=== PATIENT | female | born 2000 | race Caucasian/White ===

== ENCOUNTER → 2018-03-29 | Outpatient (REF) | payer BC ==
[2018-03-29 22:13] LABS: APPEARANCE, URINE CLEAR (CLEAR); BACTERIA, URINE AUTO 1+ (NEGATIVE); BILIRUBIN, URINE AUTO NEGATIVE (NEGATIVE); BLOOD, URINE BLOOD 2+ (NEGATIVE); COLOR, URINE YELLOW (YELLOW); GLUCOSE, URINE (UA) AUTO NEGATIVE (NEGATIVE); KETONE, URINE AUTO NEGATIVE (NEGATIVE); LEUKOCYTE ESTERASE, URINE AUTO 1+ (NEGATIVE); NITRITE, URINE AUTO POSITIVE (NEGATIVE); PROTEIN, URINE AUTO NEGATIVE (NEGATIVE); RBC, URINE AUTO 1 /HPF (0-3); SPECIFIC GRAVITY URINE AUTO 1.002 (1.002-1.035); SQUAMOUS EPITHELIAL CELL UR AU 1 /HPF (0-6); WBC, URINE AUTO 11 /HPF (0-3)
== END ==
LOC: M LAB REF 21:24
DX: N39.0 Urinary tract infection, site not specified (principal)
CPT/HCPCS: 81001

== ENCOUNTER 2019-09-09 11:58 | Emergency (ER) | payer BC ==
[~2019-09-09] VITALS: Ht 162.6 cm; Wt 66.0 kg
[2019-09-09 14:32] LABS: BASO # 0.1 10^3/uL (0.0-0.2); BASO % 0.5 % (0.0-1.0); EOS # 0.1 10^3/uL (0.0-0.5); EOS % 0.7 % (0.0-3.0); HEMATOCRIT 41.7 % (36.0-47.0); HEMOGLOBIN 13.8 g/dl (12.0-15.5); LYMPH # 2.8 10^3/uL (1.5-5.0); LYMPH % 24.9 % (24.0-44.0); MEAN CORPUSCULAR HEMOGLOBIN 30.7 pg (27.0-33.0); MEAN CORPUSCULAR HGB CONC 33.1 g/dl (32.0-36.5); MEAN CORPUSCULAR VOLUME 92.7 fl (80.0-96.0); MONO # 1.1 10^3/uL (0.0-0.8); MONO % 9.8 % (0.0-5.0); NEUTROPHILS # 7.1 10^3/uL (1.5-8.5); NEUTROPHILS % 63.6 % (36.0-66.0); PLATELET COUNT, AUTOMATED 367 10^3/uL (150-450); WHITE BLOOD COUNT 11.1 10^3/uL (4.0-10.0)
[2019-09-09 14:59] LABS: ALBUMIN 4.2 GM/DL (3.2-5.2); BILIRUBIN,DIRECT 0.1 MG/DL (0.0-0.2); BILIRUBIN,TOTAL 0.4 MG/DL (0.2-1.0)
[2019-09-09] MEDS ORDERED: NS 1,000 ML IV SCH (15:15)
[2019-09-09] MEDS ORDERED: PANTOPRAZOLE 40MG INJ (PROTONIX) (C9113) IV ONE (15:15)
[2019-09-09] MEDS: GASTROGRAFIN SOLUTION 30ML PO SCH ×2 (15:51→16:51)
[2019-09-09] MEDS ORDERED: ISOVUE-370 76% 100ML VIAL (Q9967) As Ordered ONE (17:00)
--- NOTE | 2019-09-09 17:37 | REPVR ---
PROCEDURE INFORMATION: Exam: CT Abdomen And Pelvis With Contrast Exam date and time: 09/09/2019 3:01 PM Age: 18 years old Clinical indication: Abdominal pain; Additional info: Gi bleed TECHNIQUE: Imaging protocol: Computed tomography of the abdomen and pelvis with intravenous contrast. Radiation optimization: All CT scans at this facility use at least one of these dose optimization techniques: automated exposure control; mA and/or kV adjustment per patient size (includes targeted exams where dose is matched to clinical indication); or iterative reconstruction. Contrast material: ISOVUE 370; Contrast volume: 100 ml; Contrast route: IV; Other contrast: Route: Oral, Material: GASTROGRAPHIN ; COMPARISON: No relevant prior studies available. FINDINGS: Lungs: The visualized lung bases are essentially clear. Liver: There are 5 mm hypodense lesions at the hepatic dome (image 201:17), and more inferiorly in the right hepatic lobe (image 201:31), too small to characterize. The liver appears otherwise unremarkable. Gallbladder and bile ducts: No gallstones are evident, but ultrasound would be more sensitive. No gross biliary ductal dilatation. Pancreas: Normal. No ductal dilation. Spleen: A small splenule is noted. The spleen itself appears unremarkable. Adrenals: Normal. No mass. Kidneys and ureters: The right kidney appears unremarkable. The left kidney contains a 9 mm cyst, which does not require follow-up, along with a 5 mm hypodense lesion which is too small to characterize, but is homogeneous and does not require follow-up. It appears otherwise unremarkable. Stomach and bowel: The small bowel is not obstructed. The large bowel is grossly unremarkable in appearance. Appendix: The appendix appears normal. Intraperitoneal space: There is no free air. Small free fluid in the pelvis is not clearly outside physiologic limits. Vasculature: Unremarkable. No abdominal aortic aneurysm. Lymph nodes: Unremarkable. No enlarged lymph nodes. Bladder: Grossly unremarkable. Reproductive: No gross adnexal abnormality is apparent, but ultrasound would be more appropriate in this regard. Bones/joints: Unremarkable. No acute fracture. Soft tissues: Unremarkable. IMPRESSION: 1. No acute abnormality identified. 2. 5 mm hypodensity panic lesions, too small to characterize. For low or average risk patients, no further follow-up. For high risk patients, follow-up CT or MRI in 6 months. May need more frequent follow-up in some situations, such as a cirrhotic patient who is a liver transplant candidate. Electronically signed by: Julius Ferrara On 09/09/2019 17:36:59 PM
[2019-09-09] MEDS ORDERED: PROC1AER16 PR (17:53)
[2019-09-09 18:01] VITALS: BP 119/68
--- NOTE | 2019-09-11 13:47 | ED PDOC ---
Post-Departure Follow-Up certified letter sent to pt re formal read of ct abd/p. see report. needs urgent follow up. please obtain name of pcp and fx. if no pcp refer to [facility] , provide number and fax. Ryann Wallace MD Sep 11, 2019 13:47
== END 2019-09-09 18:20 | disposition home or self-care (01) ==
LOC: M ED 11:58
DX: K51.911 Ulcerative colitis, unspecified with rectal bleeding (principal); K76.89 Other specified diseases of liver; F17.210 Nicotine dependence, cigarettes, uncomplicated
CPT/HCPCS: 74177; 80047; 80076; 81001; 83690; 84702; 85025; 87086; 96374; 99284; C9113; Q9963; Q9967

== ENCOUNTER 2019-11-27 16:26 | Emergency (ER) | payer BC ==
[~2019-11-27] VITALS: Ht 162.6 cm; Wt 68.9 kg
[~2019-11-27 16:26] MED LIST: PROC1AER16 PR
[2019-11-27 16:55] LABS: BASO # 0.1 10^3/uL (0.0-0.2); BASO % 0.4 % (0.0-1.0); EOS # 0.1 10^3/uL (0.0-0.5); EOS % 0.4 % (0.0-3.0); HEMATOCRIT 45.4 % (36.0-47.0); HEMOGLOBIN 15.2 g/dl (12.0-15.5); LYMPH # 2.7 10^3/uL (1.5-5.0); LYMPH % 21.8 % (24.0-44.0); MEAN CORPUSCULAR HEMOGLOBIN 31.1 pg (27.0-33.0); MEAN CORPUSCULAR HGB CONC 33.5 g/dl (32.0-36.5); MEAN CORPUSCULAR VOLUME 92.8 fl (80.0-96.0); MONO # 1.3 10^3/uL (0.0-0.8); MONO % 10.2 % (0.0-5.0); NEUTROPHILS # 8.2 10^3/uL (1.5-8.5); NEUTROPHILS % 66.9 % (36.0-66.0); PLATELET COUNT, AUTOMATED 388 10^3/uL (150-450); RED BLOOD COUNT 4.89 10^6/uL (4.00-5.40); WHITE BLOOD COUNT 12.3 10^3/uL (4.0-10.0)
[2019-11-27] MEDS ORDERED: NS 1,000 ML IV ONE (17:00)
[2019-11-27] MEDS ORDERED: ISOVUE-370 76% 100ML VIAL (Q9967) As Ordered ONE (17:14)
[2019-11-27] MEDS ORDERED: ONDANSETRON 4MG/2ML VIAL (J2405) IV ONE (17:15)
[2019-11-27] MEDS ORDERED: KETOROLAC 30 MG/ML 1ML VIAL (J1885 PER 15MG) IV ONE (17:15)
[2019-11-27 17:26] LABS: ALBUMIN 4.2 GM/DL (3.2-5.2); ALT/SGPT 30 U/L (12-78); BILIRUBIN,DIRECT 0.1 MG/DL (0.0-0.2); BILIRUBIN,TOTAL 0.5 MG/DL (0.2-1.0); BLOOD UREA NITROGEN 10 MG/DL (7-18); CALCIUM LEVEL 9.7 MG/DL (8.5-10.1); CARBON DIOXIDE LEVEL 29 MEQ/L (21-32); CHLORIDE LEVEL 101 MEQ/L (98-107); CREATININE FOR GFR 0.79 MG/DL (0.55-1.30); GLOMERULAR FILTRATION RATE > 60.0 (>60); GLUCOSE, FASTING 92 MG/DL (70-100); LIPASE 117 U/L (73-393); POTASSIUM SERUM 4.1 MEQ/L (3.5-5.1); SODIUM LEVEL 137 MEQ/L (136-145); TOTAL PROTEIN 8.3 GM/DL (6.4-8.2)
--- NOTE | 2019-11-27 18:13 | REPVR ---
PROCEDURE INFORMATION: Exam: CT Abdomen And Pelvis With Contrast Exam date and time: 11/27/2019 5:54 PM Age: 19 years old Clinical indication: Abdominal pain; Prior surgery; Additional info: Rlq pain, n/v TECHNIQUE: Imaging protocol: Computed tomography of the abdomen and pelvis with intravenous contrast. Radiation optimization: All CT scans at this facility use at least one of these dose optimization techniques: automated exposure control; mA and/or kV adjustment per patient size (includes targeted exams where dose is matched to clinical indication); or iterative reconstruction. Contrast material: ISO 370; Contrast volume: 100 ml; Contrast route: IV; COMPARISON: CT ABD/PEL W/IV ORAL CONTRAS 09/09/2019 5:01 PM FINDINGS: Liver: There is a diffuse decrease in hepatic parenchymal density, consistent with steatosis. 8 mm indeterminate hypodensity right lobe of the liver may represent a partially opacified hemangioma or cyst. Small cyst in the posterior patent dome. Findings are stable in comparison to the prior study. Ultrasound correlation could be obtained if clinically desired. Gallbladder and bile ducts: The gallbladder is incompletely distended. This is most likely related to incomplete fasting. Clinical correlation to exclude gallbladder pathology suggested. Pancreas: Normal. No ductal dilation. Spleen: Normal. No splenomegaly. Adrenals: Normal. No mass. Kidneys and ureters: Small left renal cysts measure up to 11 mm, stable. No follow-up suggested. Stomach and bowel: Unremarkable. No obstruction. No mucosal thickening. Appendix: The appendix is within normal limits. There is no appendiceal enlargement, periappendiceal inflammatory changes or abscess. Intraperitoneal space: Unremarkable. No free air. No significant fluid collection. Vasculature: Unremarkable. No abdominal aortic aneurysm. Lymph nodes: Unremarkable. No enlarged lymph nodes. Bladder: Unremarkable as visualized. Reproductive: 1.4 cm cyst in the right ovary likely functional. Bones/joints: Unremarkable. No acute fracture. Soft tissues: Possible mass or cyst in the left breast measuring 2 x 1.3 cm, finding which should be correlated with clinical examination/ultrasound. IMPRESSION: 1. Possible mass or cyst in the left breast measuring 2 x 1.3 cm, finding which should be correlated with clinical examination/ultrasound. 2. There is a diffuse decrease in hepatic parenchymal density, consistent with steatosis. 3. 8 mm indeterminate hypodensity right lobe of the liver may represent a partially opacified hemangioma or cyst. Small cyst in the posterior patent dome. Findings are stable in comparison to the prior study. Ultrasound correlation could be obtained if clinically desired. 4. The gallbladder is incompletely distended. This is most likely related to incomplete fasting. Clinical correlation to exclude gallbladder pathology suggested. 5. Small left renal cysts measure up to 11 mm, stable. No follow-up suggested. 6. The appendix is within normal limits. There is no appendiceal enlargement, periappendiceal inflammatory changes or abscess. Electronically signed by: Clifton Coy On 11/27/2019 18:12:51 PM
--- NOTE | 2019-11-27 18:40 | REPVR ---
PROCEDURE INFORMATION: Exam: US Pelvis Complete, Transabdominal Exam date and time: 11/27/2019 6:24 PM Age: 19 years old Clinical indication: Pelvic pain; Additional info: R pelvic pain TECHNIQUE: Imaging protocol: Real-time transabdominal pelvic ultrasound with image documentation. Complete exam. COMPARISON: CT ABD/PEL W/IV CONTRAST ONLY 11/27/2019 5:47 PM FINDINGS: Uterus/cervix: Uterus measures 7.4 x 2.6 x 4.2 cm. Endometrial echo complex measures 3.5 mm. Right adnexa: Simple cyst right ovary measures 1.9 x 2 x 1.3 cm consistent with a dominant follicle. Normal blood flow. Left adnexa: Ovary is normal. No mass. Normal blood flow. Free fluid: None. Bladder: Normal. IMPRESSION: Unremarkable examination. Electronically signed by: Clifton Coy On 11/27/2019 18:40:20 PM
[2019-11-27 18:52] VITALS: BP 112/78
--- NOTE | 2019-11-29 06:34 | ED PDOC ---
Post-Departure Follow-Up dr box faxed formal report of ct abd/p for fu Ryann Wallace MD Nov 29, 2019 06:34
== END 2019-11-27 19:00 | disposition home or self-care (01) ==
LOC: M ED 16:26
DX: N83.01 Follicular cyst of right ovary (principal); R92.8 Other abnormal and inconclusive findings on diagnostic imaging of breast; K76.89 Other specified diseases of liver; N28.1 Cyst of kidney, acquired; R11.2 Nausea with vomiting, unspecified
CPT/HCPCS: 74177; 76856; 80048; 80076; 83690; 84702; 85025; 96361; 96374; 96375; 99284; J1885; J2405; Q9967

== ENCOUNTER 2020-01-30 13:51 | Emergency (ER) | payer BC, OTHER ==
[~2020-01-30] VITALS: Ht 162.6 cm; Wt 70.3 kg
[2020-01-30 14:47] LABS: BASO # 0.1 10^3/uL (0.0-0.2); BASO % 0.4 % (0.0-1.0); EOS # 0.1 10^3/uL (0.0-0.5); HEMOGLOBIN 14.4 g/dl (12.0-15.5); LYMPH # 2.7 10^3/uL (1.5-5.0); LYMPH % 22.9 % (24.0-44.0); MEAN CORPUSCULAR HEMOGLOBIN 30.6 pg (27.0-33.0); MEAN CORPUSCULAR HGB CONC 33.5 g/dl (32.0-36.5); MEAN CORPUSCULAR VOLUME 91.5 fl (80.0-96.0); MONO # 1.2 10^3/uL (0.0-0.8); MONO % 10.1 % (0.0-5.0); NEUTROPHILS # 7.7 10^3/uL (1.5-8.5); NEUTROPHILS % 65.3 % (36.0-66.0); PLATELET COUNT, AUTOMATED 376 10^3/uL (150-450); WHITE BLOOD COUNT 11.7 10^3/uL (4.0-10.0)
[2020-01-30 15:35] LABS: HCG, SERUM QUALITATIVE POSITIVE (NEGATIVE)
[2020-01-30 15:48] LABS: ALBUMIN 4.1 GM/DL (3.2-5.2); ALT/SGPT 24 U/L (12-78); BILIRUBIN,DIRECT 0.2 MG/DL (0.0-0.2); BILIRUBIN,TOTAL 0.5 MG/DL (0.2-1.0); FREE T4 1.02 NG/DL (0.76-1.46); LIPASE 150 U/L (73-393); TOTAL PROTEIN 8.3 GM/DL (6.4-8.2)
[2020-01-30 16:09] LABS: HCG, SERUM QUANTITATIVE 10 MIU/ML
[2020-01-30 16:27] VITALS: BP 137/87
== END 2020-01-30 16:30 | disposition home or self-care (01) ==
LOC: M ED 13:51
DX: Z32.01 Encounter for pregnancy test, result positive (principal)

== ENCOUNTER 2020-02-07 12:30 | Emergency (ER) | payer BC, OTHER ==
[~2020-02-07] VITALS: Ht 162.6 cm; Wt 68.7 kg
[2020-02-07] MEDS ORDERED: PRENTAB7 PO (12:41)
[2020-02-07 13:31] LABS: BASO % 0.3 % (0.0-1.0); EOS % 0.3 % (0.0-3.0); HEMATOCRIT 42.7 % (36.0-47.0); HEMOGLOBIN 14.2 g/dl (12.0-15.5); LYMPH # 2.1 10^3/uL (1.5-5.0); MEAN CORPUSCULAR HEMOGLOBIN 30.5 pg (27.0-33.0); MEAN CORPUSCULAR HGB CONC 33.3 g/dl (32.0-36.5); MEAN CORPUSCULAR VOLUME 91.8 fl (80.0-96.0); MONO # 0.9 10^3/uL (0.0-0.8); MONO % 8.3 % (0.0-5.0); NEUTROPHILS # 7.6 10^3/uL (1.5-8.5); PLATELET COUNT, AUTOMATED 387 10^3/uL (150-450); RED BLOOD COUNT 4.65 10^6/uL (4.00-5.40); WHITE BLOOD COUNT 10.7 10^3/uL (4.0-10.0)
[2020-02-07 13:59] LABS: BLOOD UREA NITROGEN 7 MG/DL (7-18); CALCIUM LEVEL 9.7 MG/DL (8.5-10.1); CARBON DIOXIDE LEVEL 28 MEQ/L (21-32); CHLORIDE LEVEL 106 MEQ/L (98-107); CREATININE FOR GFR 0.74 MG/DL (0.55-1.30); GLOMERULAR FILTRATION RATE > 60.0 (>60); GLUCOSE, FASTING 88 MG/DL (70-100); HCG, SERUM QUANTITATIVE 4 MIU/ML; POTASSIUM SERUM 3.9 MEQ/L (3.5-5.1); SODIUM LEVEL 140 MEQ/L (136-145)
[2020-02-07 15:00] VITALS: BP 133/81
--- NOTE | 2020-02-07 17:34 | REP ---
REASON: Pelvic pain with vaginal bleeding. COMPARISON: 11/27/2019 Transvesical and transvaginal imaging was obtained. The uterus is unchanged in size and shape measuring approximately 7.3 x 3.5 x 4.3 cm. The parenchymal echo pattern is within normal limits. The endometrial echocomplex is within normal limits measuring 8 mm in thickness. There is no free fluid in the cul-de-sac. Both ovaries are within normal limits, the right measures 1.7 x 1.3 x 1.5 cm and the left measures 1.5 x 1.6 x 1.3 cm. The right ovarian RI is 0.5 and the left is 0.47. IMPRESSION: Pelvic ultrasonography is within normal limits. Electronically Signed by Abraham Lopez DO 02/17/2020 07:43 A
== END 2020-02-07 14:58 | disposition home or self-care (01) ==
LOC: M ED 12:30
DX: O20.0 Threatened abortion (principal); Z3A.01 Less than 8 weeks gestation of pregnancy; F33.9 Major depressive disorder, recurrent, unspecified; O99.341 Other mental disorders complicating pregnancy, first trimester; F41.9 Anxiety disorder, unspecified; Z87.891 Personal history of nicotine dependence

== ENCOUNTER → 2020-03-08 | Emergency (ER) | payer OTHER ==
[~2020-03-08] MED LIST changes: +PRENTAB7 PO
== END | disposition left against medical advice (07) ==
LOC: M ED 21:06
DX: Z53.21 Procedure and treatment not carried out due to patient leaving prior to being seen by health care provider (principal)

== ENCOUNTER 2020-07-24 02:00 | Outpatient (CLI) | payer BC, OTHER ==
[2020-07-24] MEDS ORDERED: FLUCONAZOLE 50MG TABLET PO ONE (04:45)
--- NOTE | 2020-07-24 04:46 | IPNPDOC ---
Obstetrical Progress Note Date of Service Jul 24, 2020 Subjective 19yo at 23+1 presents for decreased FM and cramps. she denied vb, lof, contractions. she denied n/v/d, cp, sob, freeman, visual changes, f/c, vaginal dc, urinary sx. Assessment Heart Rate (FHR): 140 Tocometer Contractions: No Sterile Vaginal Examination Dilation: None Station: -3 Cervical Consistency: Firm Cervical Position: Posterior Postion/Presentation: Cephalic presentation Assessment and Plan Additional Comments 19yo at 23+1 presents for cramps and decreased FM. VS normal, doptones 140bpm, no contractions on toco. SVE c/t/h, thick white vaginal DC on exam. MESSI/WP positive for budding yeast. UA/UCx pending, no urinary sx. TAUS with zakia quate fluid, +FM, +FHR. Labor unlikley at this time. - fluconazole given for yeast infection - educated on hydration and kick counts - provided with routine OB return precautions - otherwise to follow up at next PREM WITT DO Jul 24, 2020 04:46
[2020-07-24 05:19] LABS: AMORPHOUS SEDIMENT SMALL (NEGATIVE); APPEARANCE, URINE HAZY (CLEAR); BACTERIA, URINE AUTO 2+ (NEGATIVE); BILIRUBIN, URINE AUTO NEGATIVE (NEGATIVE); BLOOD, URINE BLOOD NEGATIVE (NEGATIVE); COLOR, URINE YELLOW (YELLOW); GLUCOSE, URINE (UA) AUTO NEGATIVE (NEGATIVE); KETONE, URINE AUTO NEGATIVE (NEGATIVE); LEUKOCYTE ESTERASE, URINE AUTO 1+ (NEGATIVE); NITRITE, URINE AUTO NEGATIVE (NEGATIVE); PROTEIN, URINE AUTO NEGATIVE (NEGATIVE); RBC, URINE AUTO 1 /HPF (0-3); SPECIFIC GRAVITY URINE AUTO 1.002 (1.002-1.035); SQUAMOUS EPITHELIAL CELL UR AU 2 /HPF (0-6); UROBILINOGEN, URINE AUTO 0.2 mg/dL (0.0-2.0); WBC, URINE AUTO 5 /HPF (0-3)
[2020-07-24 06:40] LABS: CHLAMYDIA DNA AMPLIFICATION NEGATIVE (NEGATIVE); GC DNA AMPLIFICATION NEGATIVE (NEGATIVE)
== END 2020-07-24 04:45 | disposition home or self-care (01) ==
LOC: M LDO 02:00
PROVIDERS: ATTEND Obstetrics & Gynecology
DX: O23.592 Infection of other part of genital tract in pregnancy, second trimester (principal); Z3A.23 23 weeks gestation of pregnancy
CPT/HCPCS: 81001; 87086; 87661; G0378; G0463

== ENCOUNTER 2020-11-12 11:43 | Outpatient (CLI) | payer OTHER ==
[~2020-11-12] VITALS: Ht 162.6 cm; Wt 72.4 kg
[2020-11-12 12:11] VITALS: BP 111/67
[2020-11-12] MEDS ORDERED: ACET-907 PO (12:12)
[2020-11-12 13:29] VITALS: BP 111/65
--- NOTE | 2020-11-12 13:49 | IPNPDOC ---
Text Note Date of Service The patient was seen on 11/12/20. NOTE L&D Triage Note S: Lakeshia is a 20yo at 39+1wks gestation, EDC [id number], who presents to L&D for labor check. She reports mild, irregular contractions that started last night and have progressed to more painful, regular contractions. She had a cervical exam in the clinic yesterday and had her membranes swept. She reports +FM, denies LOF/VB. She has no other concerns at this time. uncomplicated; GBS Negative O: VSS, afebrile FHR 125, moderate variability, + accels, no decels noted CTX q 2-6 minutes, irregular, mild by palpation, pt breathing well through ctx VE by RN: /-2, intact A/P: 20yo at 39+1wks, early labor, Category I FHT Pt discharged to home with strict labor/return/danger precautions Pt provided early labor comfort measures for home Pt verbalized an understanding VS,Gme, I+O VS, Zora, I+O Vital Signs Date Time Temp Pulse Resp B/P (MAP) Pulse Ox O2 Delivery O2 Flow Rate FiO2 11/12/20 13:29 99.0 80 18 111/65 (80) 11/12/20 12:11 97 Room Air ANDI LAINEZ CNM Nov 12, 2020 13:49
== END 2020-11-12 13:38 | disposition home or self-care (01) ==
LOC: M LDO 11:43
PROVIDERS: ATTEND Registered Nurse Maternal Newborn
DX: O47.1 False labor at or after 37 completed weeks of gestation (principal); Z3A.39 39 weeks gestation of pregnancy
CPT/HCPCS: 59025; G0378; G0463

== ENCOUNTER 2020-11-12 18:47 | Inpatient (IN) | payer BC, OTHER ==
[~2020-11-12] VITALS: Ht 162.6 cm; Wt 71.2 kg
[~2020-11-12 18:47] MED LIST changes: +ACET-907 PO
[2020-11-12] MEDS ORDERED: LACTATED RINGER'S 1000 ML IV STA (19:29)
[2020-11-12] MEDS ORDERED: PROMETHAZINE INJ 25 MG/ML VIAL (J2550) IV PRN (19:30)
[2020-11-12] MEDS ORDERED: BUTORPHANOL 2 MG/ML INJ (J0595) IV PRN (19:30)
[2020-11-12] MEDS ORDERED: OXYTOCIN INJ 10 UNITS/ML VIAL (J2590) IV PRN (19:30)
[2020-11-12 19:45] VITALS: BP 118/64
[2020-11-12 20:00] LABS: BASO % 0.2 % (0.0-1.0); HEMATOCRIT 40.5 % (36.0-47.0); HEMOGLOBIN 13.3 g/dl (12.0-15.5); LYMPH # 1.1 10^3/uL (1.5-5.0); MEAN CORPUSCULAR HEMOGLOBIN 29.8 pg (27.0-33.0); MEAN CORPUSCULAR HGB CONC 32.8 g/dl (32.0-36.5); MEAN CORPUSCULAR VOLUME 90.6 fl (80.0-96.0); MONO % 4.4 % (2.0-8.0); NEUTROPHILS # 19.7 10^3/uL (1.5-8.5); NEUTROPHILS % 89.9 % (36.0-66.0); PLATELET COUNT, AUTOMATED 337 10^3/uL (150-450); RED BLOOD COUNT 4.47 10^6/uL (4.00-5.40)
--- NOTE | 2020-11-12 20:01 | HPEPDOC ---
Obstetrical History & Physical General Date of Admission Nov 12, 2020 at 19:08 History of Present Illness Lakeshia is a 20yo at 39+1wks gestation, EDC [id number] by 1TUS, who presents to L&D triage for labor check. Pt was seen earlier today and discharged home in early labor, cervix was 3/75/-2. She reports that her contractions have become stronger and are now unbearable. She reports new bloody show, reports +FM, denies LOF. She is here today with her partner. uncomplicated. GBS Negative O Positive Hx of Anxiety and Depression Chief Complaint: Contractions, term Information Provided By: Patient Age: 20 : 2 Term: 0 Pre-term: 0 Abortions: 1 Livin Care Care: Good Care Dating Final EDC: Nov 18, 2020 Final EDC for Daily Update: Nov 18, 2020 Final EDC by: 1st trimester (US) Antepartum Course Height (inches): 64 Pre- weight (lbs.): 158 Admission Weight (lbs.): 160 Change in Weight (lbs.): 2 Past Medical History Past Obstetrical History : Past Obstetrical History: Multigravida (SAB January 2020) [employer] History: No pertinent history, Spontaneous Past Medical History Medical History depression/anxiety Surgical History: Denies/None Family History Significant Family History: Noncontributory Social History Marital Status: Family situation: Spouse/partner home Psychosocial History: Anxiety, Depression * Smoker: non-smoker Alcohol: Denies Drugs: denies Abuse Violence Screening Have you been hit/kicked/slapp: No Have you been sexually assault: No Imunizations Tdap status: current Influenza Status: current Allergies Coded Allergies: No Known Allergies (Unverified , 09/09/19) Medications Scheduled Pnv No.95/Ferrous Fum/Folic AC ( Vitamins Tablet) 1 Each Tablet, 1 TAB PO DAILY Scheduled PRN Acetaminophen (Tylenol) 325 Mg Tablet, 500 MG PO Q6HP PRN for PAIN Physical Examination Physical Examination GENERAL: Alert and oriented times three. ABDOMEN: Gravid and non-tender to touch. FETUS: Is vertex (VTX) by sterile vaginal examination (SVE). HEART RATE: Regular rate and rhythm. LUNGS: Observed nonlabored breathing EXTREMITIES: No edema. Other physical findings O: VSS, afebrile FHR 130s, moderate variability, + accels, no decels noted CTX by TOCO q 3-4 minutes, mild by palpation VE: 3-4/90/-2, BBOW Laboratory Data 24H LABS Laboratory Tests 2 11/12/20 19:10: Serology Scanned Report Hepatitis B Testing 11/12/20 19:35: CBC/BMP Pertinent Laboratoy Data Blood Type: O+ RBC Antibody Screen: Negative HIV: Negative Hepatitis B: Negative Rapid Plasma Reagin: Nonreactive Rubella: Immune Varicella: Immune Chlamydia/Gonorrhea: Negative Group B Streptococcus: Negative Quad Screen Test: Declined Cystic Fibrosis: Negative Anatomy Ultrasound Ultrasound Date: Jul 02, 2020 Placenta Location: Anterior Normal Anatomy: Yes Placenta Previa: No Other Ultrasounds [id number] Growth US for no maternal weight gain: 17%tile Vaginal Examination Presentation: Cephalic presentation Tocometer Contractions: Yes Frequency: regular Assessment/Plan Assessment Lakeshia is a 20yo at 39+1wks gestation who is being admitted for early labor with cervical change. Category I FHT. GBS negative; O Positive. Plan Admit to L&D, consented for labor, delivery, pain medication options, labor and interventions, operative vaginal delivery, and possibility of . IV start, admission labs collected PO and IV hydration Phenergan and stadol for pain now Can have epidural when she desires regular diet Consider AROM at next exam Anticipate Consult with OB as indicated ANDI LAINEZ CNM Nov 12, 2020 20:01
[2020-11-12 23:00] VITALS: BP 111/71
[2020-11-12] MEDS ORDERED: FENTANYL 2MCG/ML ROPIVACAINE 0.2% IN 0.9% NACL 100ML IVBAG As Ordered ONE (23:35)
[2020-11-13] VITALS (20 sets, daily range): BP systolic 90–131; BP diastolic 46–67
[2020-11-13] MEDS ORDERED: NALOXONE INJ 0.4MG/1ML VIAL (J2310 PER 1MG) IV PRN (01:00)
[2020-11-13] MEDS ORDERED: LACTATED RINGER'S 1000 ML IV PRN (01:00)
[2020-11-13] MEDS ORDERED: FENTANYL/ROPIVACAINE/NACL BAG 100 ML EPIDURAL SCH (01:00)
[2020-11-13] MEDS ORDERED: diphenhydrAMINE 50MG/ML VIAL (J1200) IV PRN (01:00)
[2020-11-13] MEDS ORDERED: REFRIGERATOR IV KEYS XX PRN (01:00)
[2020-11-13] MEDS ORDERED: ONDANSETRON 4MG/2ML VIAL IV PRN (01:00)
[2020-11-13] MEDS ORDERED: EPIDURAL/PCA KEYS XX PRN (01:00)
[2020-11-13] MEDS ORDERED: EPIDURAL COMMENT XX SCH (01:00)
[2020-11-13] MEDS: ePHEDrine SULFATE 25 MG/5 ML(5MG/ML) SYRINGE IV PRN ×2 (01:26→01:34)
[2020-11-13] MEDS ORDERED: OXYTOCIN 30 UNITS IN 0.9% NaCl 500ML IV BAG (J2590) As Ordered ONE (05:02)
--- NOTE | 2020-11-13 05:35 | IPNPDOC ---
Obstetrical Progress Note Date of Service Nov 13, 2020 Luke Asher is a 20yo at 39+2wks gestation, admitted last PM for early labor with cervical change. She has progressed very well, stadol/phenergan x1, now comfortable with epidural in place. She SROMd at 0454 and quickly progressed to C/C/+1. She did have a prolonged deceleration just before 0400 this AM - interventions by RN (LR bolus, repositioning) and fetus recovered well. Pt currently has strong urge to push with contractions. Objective O: VSS, afebrile FHR 150s, minimal variability, + accels, variable decelerations with contractions/pushing CTX q 3minutes VE: C/C/+2 Clear amniotic fluid Vital Signs Date Time Temp Pulse Resp B/P (MAP) Pulse Ox O2 Delivery O2 Flow Rate FiO2 11/13/20 03:45 98.8 96 95/47 (63) 11/12/20 19:57 16 11/12/20 19:45 Room Air Assessment Decelerations: Variable Heart Rate Tracing: Category II Tocometer Contractions: Yes Frequency: regular Sterile Vaginal Examination Postion/Presentation: Cephalic presentation Assessment and Plan Status: Reassuring Group B Streptococcus: Negative Anticipate: Vaginal Delivery Additional Comments A: 20yo , second stage of labor, currently pushing with RN. Category II FHT, O2 in place, reassuring tracing. P: Close maternal/ monitoring Continue pushing Anticipate ANDI BOWEN CNM Nov 13, 2020 05:35
[2020-11-13] MEDS ORDERED: DOCUSATE SODIUM 100MG CAPSULE PO PRN (06:30)
[2020-11-13] MEDS ORDERED: ACETAMINOPHEN TAB 650MG DOSE (2X325MG) PO PRN (06:30)
[2020-11-13] MEDS ORDERED: DIBUCAINE 1% OINTMENT 30GM TOP PRN (06:30)
[2020-11-13] MEDS ORDERED: IBUPROFEN 600MG TAB PO PRN (06:30)
--- NOTE | 2020-11-13 06:49 | DNPDOC ---
[facility] Delivery Note Delivery Note DATE OF DELIVERY: 11/13/2020 at 0544 PREDELIVERY DIAGNOSIS: 39+2wks gestation; labor. POST DELIVERY DIAGNOSIS: Delivered. PROCEDURE: Spontaneous vaginal delivery. NEWS OPERATIONS MANAGER: KEYANNA Lainez ANESTHESIA: Epidural ESTIMATED BLOOD LOSS: 200mL FINDINGS: 6 pound 2 ounce Male , Score 8/9, nuchal cord times 1. DELIVERY SUMMARY: Lakeshia is a 20yo at 39+2 weeks, admitted in early labor and progressed quickly after SROM to C/C/+2 and had strong urge to push. Pt effectively pushed to deliver a viable male over a protected perineum. head delivered HUONG and restituted to LOT. Right anterior shoulder delivered with ease, followed by left posterior shoulder, then remainder of body delivered to maternal abdomen where he was dried and stimulated. Cord clamped x2 and cut by FOB. Cord blood collected by type and gumaro. Placenta delivered spontaneously and appeared intact, 3VC. Pitocin bolus started, fundus firm, EBL 200mL. Upon inspection of vagina, perineum and cervix, bilateral labial lacerations noted and repaired in usual fashion with 3-0 vicryl on SH; hemostasis achieved. Family bonding well; anticipate uncomplicated PP course. ANDI LAINEZ CNM Nov 13, 2020 06:49
[2020-11-13] MEDS: IBUPROFEN 800 MG TAB PO PRN ×2 (11:50→20:01)
[2020-11-13] MEDS: PRENATAL VITAMINS CHEWABLE TABLET PO SCH (13:28)
[2020-11-14] MEDS: ACETAMINOPHEN 500 MG TAB PO PRN ×2 (04:37→16:54)
[2020-11-14 05:57] VITALS: BP 103/51
--- NOTE | 2020-11-14 06:59 | IPNPDOC ---
Progress Note Date of Service: Nov 14, 2020 Day#: 1 Progress Note SUBJECT: Lakeshia is a 20yo PPD1 s/p 6 pound 2 ounce Male , Score 8/9. She has been ambulating, voiding spontaneously without issue and tolerating regular diet. Breast feeding without issue. Reports lochia is like a normal period. Patient is ambulating well. Reports some cramping with . Denies any pain. Voiding and stooling without difficulty. OBJECTIVE: VITAL SIGNS: Within normal limits, afebrile. Alert and oriented times three. No increased WOB Heart rate: non-tachy Abdomen: Fundus firm at U-2. Soft, NTTP. Minimal lochia. ASSESSMENT: Lakeshia is a 20yo PPD1 s/p 6 pound 2 ounce Male , Score 8/9. Vitals within normal limits, afebrile, hemodynamically stable with no evidence of infection. PLAN: 1. Discharge to home likely tomorrow 2. Tylenol and Motrin for pain. 3. Encourage breast feeding and ambulation. 4. reports will use condoms for contraception 5. Routine PP visit in 6 weeks in clinic. and at 2wk PP for behavioral health concerns 6. Discussed return precautions at length. VS, I&O, 24H, Fishbone Vital Signs/I&O Vital Signs Date Time Temp Pulse Resp B/P (MAP) Pulse Ox O2 Delivery O2 Flow Rate FiO2 11/14/20 05:57 97.2 77 16 103/51 (68) 11/13/20 18:30 99 11/13/20 08:40 Room Air I&O- Last 24 Hours up to 6 AM 11/14/20 06:00 Intake Total 500 ml Output Total 550 ml Balance -50 ml PREM COSTA DO Nov 14, 2020 06:59
[2020-11-14] MEDS: IBUPROFEN 800 MG TAB PO PRN (09:18)
[2020-11-14] MEDS: PRENATAL VITAMINS CHEWABLE TABLET PO SCH (09:18)
[2020-11-14 17:49] VITALS: BP 125/72
--- NOTE | 2020-11-15 04:59 | IPNPDOC ---
Progress Note Date of Service: Nov 15, 2020 Day#: 2 Progress Note SUBJECT: Lakeshia is a 20yo s/p , doing well day # 1. She has been ambulating, voiding spontaneously without issue and tolerating regular diet. Breast feeding without issue. Reports lochia is decreasing. Reports pain controlled. OBJECTIVE: VITAL SIGNS: Within normal limits, afebrile. Alert and oriented times three. Abdomen: Fundus firm at U-2. Soft, NTTP. ASSESSMENT: Lakeshia is a 20yo s/p , doing well day # 1. V itals within normal limits, afebrile, hemodynamically stable with no evidence of infection. PLAN: 1. Discharge to home today. 2. Tylenol and Motrin for pain. 3. Encourage breast feeding with consult PRN. 4. Encourage regular diet and ambulation OOB as tolerated. 5. Routine PP visit in 6 weeks in clinic. 6. Discussed return precautions at length. VS, I&O, 24H, Fishbone Vital Signs/I&O Vital Signs Date Time Temp Pulse Resp B/P (MAP) Pulse Ox O2 Delivery O2 Flow Rate FiO2 11/14/20 17:49 97.5 64 14 125/72 (89) 98 Room Air MARISOL ELLIS DO Nov 15, 2020 04:59
[2020-11-15 06:28] VITALS: BP 116/72
[2020-11-15] MEDS: IBUPROFEN 800 MG TAB PO PRN (06:48)
[2020-11-15] MEDS: PRENATAL VITAMINS CHEWABLE TABLET PO SCH (08:14)
== END 2020-11-15 12:10 | disposition home or self-care (01) | DRG 560 ==
LOC: M LDO 18:47 → M LDI 19:08 → M OBS 11-13 08:37
PROVIDERS: ADMIT Obstetrics & Gynecology; ATTEND Registered Nurse Maternal Newborn
PROC: 10E0XZZ Delivery of Products of Conception, External Approach (ICD-10-PCS; principal; 2020-11-13)
PROC: 0HQ9XZZ Repair Perineum Skin, External Approach (ICD-10-PCS; 2020-11-13)
DX: O70.0 First degree perineal laceration during delivery (principal); Z37.0 Single live birth; Z3A.39 39 weeks gestation of pregnancy